=== PATIENT | male | born 1995 | race American Indian/Alaskan Native ===

== ENCOUNTER 2017-06-28 10:23 | Emergency (ER) | payer OTHER ==
[2017-06-28 10:41] VITALS: BP 113/61
[2017-06-28] MEDS ORDERED: MOTRIN PO ONE (10:57)
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
== END 2017-06-28 11:05 | disposition home or self-care (01) ==
LOC: ED 10:23
DX: S13.4XXA Sprain of ligaments of cervical spine, initial encounter (principal); S39.012A Strain of muscle, fascia and tendon of lower back, initial encounter; F17.200 Nicotine dependence, unspecified, uncomplicated; V87.7XXA Person injured in collision between other specified motor vehicles (traffic), initial encounter; Y93.89 Activity, other specified; Y99.8 Other external cause status; Y92.410 Unspecified street and highway as the place of occurrence of the external cause
CPT/HCPCS: 99282